=== PATIENT | female | born 1980 | race African-American/Black ===

== ENCOUNTER 2016-10-22 19:37 | Emergency (ER) | payer MEDICAID, OTHER ==
[~2016-10-22 19:37] MED LIST: ERYT1O RIGHT EYE
[2016-10-22 19:48] VITALS: BP 128/60; PULSE 66; RESP 15; TEMP 97.8; O2SAT 100
[2016-10-22 21:15] VITALS: RESP 18
--- NOTE | 2016-10-22 21:23 | PD ---
HPI Chief Complaint Lower abdominal pain for 2 days and no care Date Seen: Oct 22, 2016 Travel History International Travel<30 Days: No Contact w/Intl Traveler<30Days: No Known Affected Area: No History of Present Illness HPI This is a 36-year-old black female presents complaining of abdominal pain last 2 days. Denies bleeding or ruptured membranes. Baby is active she's had no care today she's been in retirement and didn't realize she was until just very recently, she is previous . Para: 1 : 2 Allergies-Medications (Allergen,Severity, Reaction): Coded Allergies: No Known Allergies (Verified , 10/22/16) Home Meds Active Scripts Erythromycin (Erythromycin Opht 0.5% Oint)0.5 % Oint1 Applic RIGHT EYE Q6 14 Days Instill 1/2 inch Prov:Darnell Pitts MD 05/01/14 Review of Systems General / Constitutional: No: Fever, Weight Gain, Chills, Other Eyes: No: Diploplia, Blurred Vision, Visual changes, Pain, Photophobia HENT: No: Headaches, Vertigo, Lightheadedness Cardiovascular: No: Irregular Rhythm, Chest Pain or Discomfort, Palpitations, Tachycardia, Syncope, Varicosities, Edema, Cyanosis Respiratory: No: Cough, Short of Breath, Other Gastrointestinal: Abdominal Pain, No: Nausea, Vomiting, Diarrhea Genitourinary: No: Decreased Urinary Output, Oliguria Musculoskeletal: No: Limited ROM, Weakness, Cramping, Edema, Pain Skin: No Rash, No Itching, No Dryness, No Lumps, No Change in Pigmentation, No Change in Nails, No Alopecia, No Lesions Neurologic: No: Weakness, Dizziness, Syncope, Focal Abnormalities, Coordination Problem, Headache, Slurred Speech, Seizures Psychiatric: No: Depression, Suicidal Ideations, Homicidal Ideation Endocrine: No: Heat Intolerance, Cold Intolerance, Polydipsia, Polyuria, Other Physical Exam Vital Signs Date Time Temp Pulse Resp B/P Pulse Ox O2 Delivery O2 Flow Rate FiO2 10/22/16 19:48 97.8 66 15 128/60 100 Room Air Narrative GENERAL: Well-nourished, thin patient. SKIN: Warm and dry. HEAD: Normocephalic and atraumatic. EYES: No scleral icterus. No injection or drainage. ENT: No nasal drainage noted. Mucous membranes pink. Airway patent. NECK: Supple, trachea midline. No JVD. CARDIOVASCULAR: Regular rate and rhythm without murmurs, gallops, or rubs. RESPIRATORY: Breath sounds equal bilaterally. No accessory muscle use. BREASTS: Bilateral exam showed no masses , no retractions, no nipple discharge. ABDOMEN/GI: Abdomen soft, non-tender, bowel sounds present, no rebound, no guarding Gravid to [30-] weeks size Fundal Height: [30-] GENITOURINARY: External Genitalia: intact and normal in appearance BUS glands: [-] Cervix: [Closed-] Dilatation: [-Closed] Effacement: [-] Thick Station: [-3] Presentation: [vtx ultrasound-] Membranes: [intact ] Uterine Contractions: [none-] FHT's: Category: [1-] Baseline: [-133] Reactive: [yes-] Variability: [-mod] Decels: [-none] EXTREMITIES: No cyanosis or edema. BACK: Nontender without obvious deformity. No CVA tenderness. NEUROLOGICAL: Awake and alert. Motor and sensory grossly within normal limits. Five out of 5 muscle strength in all muscle groups. Normal speech. Data Data Orders Ob Poc Ultrasound (10/22/16 ) Vital Signs (Adult) .ON ADMISSION (10/22/16 21:11) ^ Labor Status (10/22/16 21:11) Urinalysis - C+S If Indicated (10/22/16 21:11) Fentanyl Inj (Fentanyl Inj) (10/22/16 21:15) Labs Ultrasound done on OB ED shows a vertex female fetus 30 week 6 day size the gives an EDC of 12/25/16, normal anatomy noted on scan normal amniotic fluid volume, anterior grade 2 placenta MDM Interpretation(s) This patient is 36-year-old black female PCS with no care to date now 30 week 6 day size by ultrasound giving her due date of 12/25/16, she is her only complaint is one of lower abdominal pain. She denies bleeding or ruptured membranes baby is active heart rate tracing is reactive and no contractions, urinalysis pending at time of this dictation but will receive that result and treat if is positive UTI if negative than just we'll have the patient use oral hydration and Tylenol for relief Plan The plan this patient is to be treated with bedrest pain medication such as Tylenol oral hydration she can use a heating pad on low across the lower abdomen and or soak in a hot bath, her pain may be related to just adhesions from her scar or just generalized soft tissue strain and pain, she is planning upper to begin her care very soon and that is been arranged. Diagnosis Diagnosis: Primary Impression: Abdominal pain affecting , antepartum Additional Impressions: Previous delivery, antepartum No care in current in third trimester Disposition: 01 DISCHARGE HOME Condition: Stable Gurmeet Knowles II, MD Oct 22, 2016 21:23
[2016-10-22] MEDS ORDERED: LACTATED RINGER'S 1000 ML INJ 1,000 ML IV SCH (21:37)
[2016-10-22 21:45] VITALS: RESP 18
[2016-10-22] MEDS ORDERED: TERBUTALINE INJ 1 MG/ML AMP SQ PRN (21:45)
[2016-10-22 22:03] LABS: BACTERIA, URINE MOD /hpf; BLOOD, URINE NEG (NEG); COMMENT (UR) CULTURE INDICATED; CULTURE IF INDICATED CULTURE INDICATED; GLUCOSE,URINE NEG (NEG); KETONE, URINE NEG (NEG); MUCUS URINE FEW /lpf (OCC); NITRITE,URINE NEG (NEG); PH, URINE 6.5 (5.0-8.5); SQUAMOUS EPITHELIAL CELL URINE 18 /hpf (0-5); URINE COLOR YELLOW (YELLW/STRAW)
[2016-10-22 22:15] VITALS: RESP 18
[2016-10-22 22:45] VITALS: RESP 18
== END 2016-10-22 23:22 | disposition home or self-care (01) ==
LOC: HOBED 19:37
DX: O26.893 Other specified pregnancy related conditions, third trimester (principal); R10.9 Unspecified abdominal pain; O09.33 Supervision of pregnancy with insufficient antenatal care, third trimester
CPT/HCPCS: 76815; 81001; 87086; 96360; 99284; J3010; J7120

== ENCOUNTER 2016-12-06 21:13 | Inpatient (IN) | payer MEDICAID, OTHER ==
[2016-12-06] MEDS ORDERED: LACTATED RINGER'S 1000 ML INJ 1,000 ML IV ONE (22:09)
--- NOTE | 2016-12-06 22:09 | PD ---
HPI Chief Complaint Contractions Date Seen: December 06, 2016 Time Seen: 22:05 Travel History International Travel<30 Days: No Contact w/Intl Traveler<30Days: No Known Affected Area: No History of Present Illness HPI 36-year-old who is at 37 weeks 3 days by very limited criteria. Patient does not remember her last menstrual cycle and did not obtain care, patient had an ultrasound done at 30 weeks that gave her an EDC of 12/25/2016. Patient has been in [facility] during this and was unable to obtain care and did not know that she was . Para: 1 : 2 History Past Medical History Medical History: Denies Significant Hx Obstetric History Obstetric History Past Surgical History Narrative Surgical Previous section Family History Family History: Negative Social History Alcohol Use: No Tobacco Use: No Substance Abuse: No Allergies-Medications (Allergen,Severity, Reaction): Coded Allergies: No Known Allergies (Verified , 10/22/16) Home Meds Active Scripts Erythromycin (Erythromycin Opht 0.5% Oint)0.5 % Oint1 Applic RIGHT EYE Q6 14 Days Instill 1/2 inch Prov:Darnell Pitts MD 05/01/14 Review of Systems Except as stated in HPI: all other systems reviewed are Neg Physical Exam Narrative GENERAL: Well-nourished, well-developed patient. SKIN: Warm and dry. HEAD: Normocephalic and atraumatic. EYES: No scleral icterus. No injection or drainage. ENT: No nasal drainage noted. Mucous membranes pink. Airway patent. NECK: Supple, trachea midline. No JVD. CARDIOVASCULAR: Regular rate and rhythm without murmurs, gallops, or rubs. RESPIRATORY: Breath sounds equal bilaterally. No accessory muscle use. BREASTS: Bilateral exam showed no masses , no retractions, no nipple discharge. ABDOMEN/GI: Abdomen soft, non-tender, bowel sounds present, no rebound, no guarding Gravid to [-36] weeks size Fundal Height: [-36] GENITOURINARY: External Genitalia: intact and normal in appearance BUS glands: [-Normal] Cervix: [-Mid position] Dilatation: [-2] Effacement: [-90] Station: [--2] Presentation: [Vertex-] Membranes: [intact ] Uterine Contractions: [-Every 2 minutes] FHT's: Category: [-1] Baseline: [140-] Reactive: [-mod] Variability: [Moderate-] Decels: [Absent-] EXTREMITIES: No cyanosis or edema. BACK: Nontender without obvious deformity. No CVA tenderness. NEUROLOGICAL: Awake and alert. Motor and sensory grossly within normal limits. Five out of 5 muscle strength in all muscle groups. Normal speech. Data Data Vital Signs Reviewed: Yes MDM Plan 36-year-old who is at 37 and 38 weeks by very limited gestational age criteria No previous care Previous section patient is in labor Diagnosis Diagnosis: Primary Impression: 37 weeks gestation of Additional Impressions: Previous delivery affecting Irregular uterine contractions Nicol Cheek MD December 06, 2016 22:09
[2016-12-06] MEDS ORDERED: LACTATED RINGER'S 1000 ML INJ 1,000 ML IV SCH (22:39)
[2016-12-06 22:40] LABS: AUTOMATED NEUTROPHIL # 7.3 TH/MM3 (1.8-7.7); BASOPHIL # 0.1 TH/MM3 (0-0.2); BASOPHIL % 0.6 % (0.0-2.0); EOSINOPHIL # 0.1 TH/MM3 (0-0.4); EOSINOPHIL % 0.8 % (0.0-4.0); HEMATOCRIT 35.1 % (35.0-46.0); HEMO FLAGS DIFF FINAL; LYMPH % 30.7 % (9.0-44.0); LYMPHOCYTE # 3.7 TH/MM3 (1.0-4.8); MEAN CELL VOLUME 90.6 FL (80.0-100.0); MEAN CORPUSCULAR HEMOGLOBIN 29.8 PG (27.0-34.0); MEAN CORPUSCULAR HGB CONC 32.9 % (32.0-36.0); MONO % 6.9 % (0.0-8.0); PLATELET COUNT 240 TH/MM3 (150-450); RED BLOOD COUNT 3.88 MIL/MM3 (4.00-5.30); RED CELL DISTRIBUTION WIDTH 13.6 % (11.6-17.2)
[2016-12-06 22:46] LABS: AMPHETAMINE, URINE NEG (NEG); BARBITURATES, URINE NEG (NEG)
[2016-12-06] MEDS ORDERED: ONDANSETRON HCL 4 MG/2 ML VIAL ONE (22:46)
[2016-12-06] MEDS ORDERED: OXYTOCIN 10 UNIT/ML AMP ONE (22:46)
[2016-12-06] MEDS ORDERED: MORPHINE SULFATE PF 5 MG/10 ML VIAL ONE (22:46)
[2016-12-06] MEDS ORDERED: EPIDURAL-NALOXONE HCL 0.4 MG/ML AMP IV PRN (23:00)
[2016-12-06] MEDS ORDERED: EPIDURAL-DO NOT ADMINISTER ANTICOAGULANTS PRN (23:00)
[2016-12-06] MEDS ORDERED: EPIDURAL-DIPHENHYDRAMINE HCL 50 MG CAP PO PRN (23:00)
[2016-12-06] MEDS ORDERED: EPIDURAL-DIPHENHYDRAMINE HCL 50 MG/ML VIAL IV PUSH PRN (23:00)
[2016-12-06] MEDS ORDERED: EPIDURAL-NO SYSTEMIC NARCOTICS PRN (23:00)
[2016-12-06 23:07] LABS: COCAINE, URINE POS (NEG)
[2016-12-06] MEDS ORDERED: LIDOCAINE HCL 1% 50 ML VIAL ONE (23:14)
[2016-12-06] MEDS ORDERED: ceFAZolin 2 GM PREMIX 50 ML IV SCH (23:15)
[2016-12-06] MEDS ORDERED: CITRIC ACID-SODIUM CITRATE LIQ 30 ML UDC PO SCH (23:45)
--- NOTE | 2016-12-06 23:45 | HHI.HP ---
History & Physical H&P HPI HPI Chief Complaint Contractions Date Seen: December 06, 2016 Time Seen: 22:05 Travel History International Travel<30 Days: No Contact w/Intl Traveler<30Days: No Known Affected Area: No History of Present Illness HPI 36-year-old who is at 37 weeks 3 days by very limited criteria. Patient does not remember her last menstrual cycle and did not obtain care, patient had an ultrasound done at 30 weeks that gave her an EDC of 12/25/2016. Patient has been in [facility] during this and was unable to obtain care and did not know that she was . Para: 1 : 2 History (Limited) History Past Medical History Medical History: Denies Significant Hx Obstetric History Obstetric History Past Surgical History Narrative Surgical Previous section Family History Family History: Negative Social History Alcohol Use: No Tobacco Use: No Substance Abuse: No Allergies-Medications Allergies-Medications (Allergen,Severity, Reaction): Coded Allergies: No Known Allergies (Verified , 10/22/16) Home Meds Active Scripts Erythromycin (Erythromycin Opht 0.5% Oint)0.5 % Oint1 Applic RIGHT EYE Q6 14 Days Instill 1/2 inch Prov:Darnell Pitts MD 05/01/14 ROS Review of Systems Except as stated in HPI: all other systems reviewed are Neg Physical Exam Physical Exam Narrative GENERAL: Well-nourished, well-developed patient. SKIN: Warm and dry. HEAD: Normocephalic and atraumatic. EYES: No scleral icterus. No injection or drainage. ENT: No nasal drainage noted. Mucous membranes pink. Airway patent. NECK: Supple, trachea midline. No JVD. CARDIOVASCULAR: Regular rate and rhythm without murmurs, gallops, or rubs. RESPIRATORY: Breath sounds equal bilaterally. No accessory muscle use. BREASTS: Bilateral exam showed no masses , no retractions, no nipple discharge. ABDOMEN/GI: Abdomen soft, non-tender, bowel sounds present, no rebound, no guarding Gravid to [-36] weeks size Fundal Height: [-36] GENITOURINARY: External Genitalia: intact and normal in appearance BUS glands: [-Normal] Cervix: [-Mid position] Dilatation: [-2] Effacement: [-90] Station: [--2] Presentation: [Vertex-] Membranes: [intact ] Uterine Contractions: [-Every 2 minutes] FHT's: Category: [-1] Baseline: [140-] Reactive: [-mod] Variability: [Moderate-] Decels: [Absent-] EXTREMITIES: No cyanosis or edema. BACK: Nontender without obvious deformity. No CVA tenderness. NEUROLOGICAL: Awake and alert. Motor and sensory grossly within normal limits. Five out of 5 muscle strength in all muscle groups. Normal speech. Data Data Data Vital Signs Reviewed: Yes MDM MDM Plan 36-year-old who is at 37 and 38 weeks by very limited gestational age criteria No previous care Previous section patient is in labor Diagnosis Diagnosis: Primary Impression: 37 weeks gestation of Additional Impressions: Previous delivery affecting Irregular uterine contractions Nicol Cheek MD December 06, 2016 22:09 Nicol Cheek MD December 06, 2016 23:45
[2016-12-06 23:50] VITALS: BP 113/82; PULSE 72; RESP 18; TEMP 97.5; O2SAT 98
--- NOTE | 2016-12-06 23:51 | PD.OB.DELI ---
Procedure Note Section Procedure Pre Op Diagnosis: (1) No care in current in third trimester (2) Abdominal pain affecting , antepartum (3) Irregular uterine contractions (4) 37 weeks gestation of (5) Previous delivery, antepartum (6) Drug abuse during Post Op Diagnosis: Performed by Nicol Cheek Procedure: Repeat Low Transverse Sec Indication for delivery: Desired elective repeat Informed consent obtained: For anesthesia, For procedure Confirmed correct: Patient, Procedure, Time-out taken Anesthesia: Spinal Medication prior to procedure: Antibiotics, IV Monitoring during procedure: Blood pressure monitoring, postal service mail processor, Pulse oximetry Urinary catheter: Inserted using sterile technique, To dependent drainage Sterile preparation: Duraprep Position: Supine with wedge to left side Operative Features Skin Incision: Transverse Uterine Incision: Low transverse w/knife / blunt ext Membranes Ruptured: Artificially Presentation: Occiput anterior Time of : 23:19 Delivery of infant: Uneventful Infant: Female One Minute : 8 Five Minute : 9 Weight: 2550gm Status of : Viable Placenta delivered: Intact Medications: Oxytocin Estimated blood loss: <500cc Procedure tolerated: Well Maternal Condition: Stable Condition: Stable Nicol Cheek MD December 06, 2016 23:51
[2016-12-07] VITALS: BP 123/62; PULSE 72; RESP 18; O2SAT 100
[2016-12-07] MEDS ORDERED: OXYTOCIN 30 UNITS-500ML PREMIX 500 ML IV ONE
[2016-12-07] MEDS ORDERED: ONDANSETRON HCL 4 MG/2 ML VIAL IV PUSH PRN
[2016-12-07] MEDS ORDERED: SODIUM CHLORIDE 0.9% FLUSH 10 ML FLUSH IV FLUSH PRN
[2016-12-07] MEDS ORDERED: SIMETHICONE 80 MG CHEWABLE TAB PO PRN
[2016-12-07 00:10] VITALS: BP 112/57; PULSE 65; RESP 18; O2SAT 100
[2016-12-07 00:21] VITALS: BP 125/71; PULSE 63; RESP 16; O2SAT 100
[2016-12-07 00:37] VITALS: BP 128/72; PULSE 59; RESP 16; O2SAT 100
[2016-12-07 03:59] LABS: RUBELLA IGG ANTIBODY 37.2 IU/mL (10.0-500.0); RUBELLA STATUS IMMUNE (IMMUNE)
[2016-12-07] MEDS ORDERED: LACTATED RINGER'S 1000 ML INJ 1,000 ML IV SCH (04:54)
[2016-12-07 06:02] LABS: AUTOMATED NEUTROPHIL # 12.5 TH/MM3 (1.8-7.7); BASOPHIL % 0.3 % (0.0-2.0); HEMATOCRIT 35.4 % (35.0-46.0); HEMO FLAGS DIFF FINAL; LYMPH % 9.6 % (9.0-44.0); LYMPHOCYTE # 1.4 TH/MM3 (1.0-4.8); MEAN CELL VOLUME 91.7 FL (80.0-100.0); MEAN CORPUSCULAR HEMOGLOBIN 29.9 PG (27.0-34.0); MEAN CORPUSCULAR HGB CONC 32.6 % (32.0-36.0); MONO % 3.8 % (0.0-8.0); NEUT % 86.3 % (16.0-70.0); PLATELET COUNT 212 TH/MM3 (150-450); RED BLOOD COUNT 3.86 MIL/MM3 (4.00-5.30); RED CELL DISTRIBUTION WIDTH 13.4 % (11.6-17.2); WHITE BLOOD COUNT 14.5 TH/MM3 (4.0-11.0)
[2016-12-07] MEDS: IBUPROFEN 600 MG TAB PO PRN ×3 (07:56→19:35)
[2016-12-07] MEDS: oxyCODONE/ACETAMINOPHEN 5 MG/325 MG TAB PO PRN ×3 (07:56→19:35)
--- NOTE | 2016-12-07 08:04 | HHI.OB ---
Subjective Post Operative Day: 1 Remarks Patient is a 36-year-old delivered at 37 weeks and 2 days. Patient is postop day 1 after . Patient's pain is mild and well-controlled by medication. Patient reports not yet eating and drinking; she denies any nausea or vomiting. Patient reports not much bleeding. Patient has not yet passed gas or bowel movements. Patient is not yet walking without lower extremity pain or shortness of breath. Patient reports desire for contraception with Depo-Provera shot. (Humphrey Carlton MD R1) Objective Vitals/I&O Vital Signs Date Time Temp Pulse Resp B/P Pulse Ox O2 Delivery O2 Flow Rate FiO2 12/07/16 00:37 59 16 128/72 100 12/07/16 00:21 125/71 12/07/16 00:21 63 16 100 12/07/16 00:10 65 18 112/57 100 12/07/16 00:00 72 18 123/62 100 12/07/16 00:00 72 18 123/62 100 12/06/16 23:50 97.5 72 18 113/82 98 (Humphrey Carlton MD R1) Result Diagram: 12/07/16 0442 Objective Remarks GENERAL: Well-nourished, well-developed patient. CARDIOVASCULAR: Regular rate and rhythm without murmurs, gallops, or rubs. RESPIRATORY: Breath sounds equal bilaterally. No accessory muscle use. ABDOMEN/GI: Abdomen soft, non-tender, bowel sounds present. Incision: Clean, dry and intact. Fundus: Firm, non-tender at umbilicus. GENITOURINARY: Light to moderate bleeding. EXTREMITIES: No cyanosis or edema, non-tender, without signs of DVT. Medications and IVs Current Medications Medications (Trade) Dose Ordered Sig/Vida Route Start Time Stop Time Status Last Admin Lactated Ringer's 1,000 ml @ 150 mls/hr Q6H40M IV 12/06/16 22:39 12/06/16 22:39 (Lr 1000 ml Inj) 1,000 ml @ 100 mls/hr Q10H IV 12/07/16 04:54 12/08/16 00:53 (NS Flush) 2 ml BID IV FLUSH 12/07/16 09:00 (NS Flush) 2 ml UNSCH PRN IV FLUSH 12/07/16 00:00 12/07/16 02:23 (Mylicon Chew) 80 mg QID PRN PO 12/07/16 00:00 (Motrin) 600 mg Q6H PRN PO 12/07/16 00:00 12/07/16 07:56 (Percocet 5-325 Mg) 1 tab Q4H PRN PO 12/07/16 00:00 12/07/16 07:56 (Percocet 5-325 Mg) 2 tab Q4H PRN PO 12/07/16 00:00 (Connie-Colace) 2 tab Q12H PRN PO 12/07/16 00:00 (M-M-R Ii Inj) 0.5 ml ONCE ONCE SQ 12/07/16 16:00 12/07/16 16:01 (Boostrix Inj) 0.5 ml ONCE ONCE IM 12/07/16 16:00 12/07/16 16:01 (Zofran Inj) 4 mg Q6H PRN IV PUSH 12/07/16 00:00 Miscellaneous Information NO SYSTEMIC NARCOTICS TO BE GIVEN FO... UNSCH PRN .XX 12/06/16 23:00 12/07/16 22:59 (Narcan Inj) 0.4 mg UNSCH PRN IV 12/06/16 23:00 12/07/16 22:59 (Benadryl Inj) 25 mg Q6H PRN IV PUSH 12/06/16 23:00 12/07/16 22:59 12/07/16 02:23 (Benadryl) 50 mg Q6H PRN PO 12/06/16 23:00 12/07/16 22:59 Miscellaneous Information ALL NURSING DEPARTMENTS UNSCH PRN .XX 12/06/16 23:00 12/07/16 22:59 (Humphrey Carlton MD R1) Assessment/Plan Problem List: (1) S/P Assessment and Plan Patient is a 36-year-old delivered at 37 weeks and 2 days. Patient is postop day 1 after . 1. s/p --Patient was counseled to follow up with her doctor in one week to get incision check and do 6 weeks of pelvic rest. Patient was counseled to follow up in 6 weeks. --AF VSS --Continue routine /postop care --Motrin and Percocet when necessary for pain --Encourage OOB --Contraception: Patient requested Depo-Provera shot for contraception. --Anticipate discharge in 2 days Discharge Planning Anticipate discharge in 2 days. (Humphrey Carlton MD R1) Collaborating MD Comments Agree with assessment and management (Nicol Cheek MD) Humphrey Carlton MD R1 December 07, 2016 08:04 Nicol Cheek MD December 07, 2016 08:25
[2016-12-07] MEDS ORDERED: SODIUM CHLORIDE 0.9% FLUSH 10 ML FLUSH IV FLUSH SCH (09:00)
[2016-12-07] MEDS ORDERED: OXYTOCIN 30 UNITS-500ML PREMIX 500 ML IV PRN (10:00)
[2016-12-07 10:02] LABS: RAPID PLASMA REAGIN SCREEN NON-REACTIVE (NON-REACTVE)
--- NOTE | 2016-12-07 12:11 | MP ---
cc: DOMITILA JOYCE M.D. DATE OF SURGERY 12/06/2016 SURGEON Domitila Joyce MD PREOPERATIVE DIAGNOSES 1. No care. 2. Abdominal pain. 3. Irregular uterine contractions. 4. 37 weeks gestation. 5. Previous section, desires repeat. 6. Drug abuse during with incarceration. POSTOPERATIVE DIAGNOSES 1. No care. 2. Abdominal pain. 3. Irregular uterine contractions. 4. 37 weeks gestation. 5. Previous section, desires repeat. 6. Drug abuse during with incarceration. PROCEDURE Repeat low transverse section without extension. ESTIMATED BLOOD LOSS 500 cc. ANESTHETIC Spinal. DRAINS [place]barca to gravity. MEDICATIONS Ancef 2 grams given preoperatively. COUNTS Correct x 3. COMPLICATIONS No complications. FINDINGS 1. Normal uterus, tubes and ovaries. 2. Moderate meconium-stained amniotic fluid. 3. Infant female vertex presentation. Apgars were 8 and 9, weight was 2550 grams with a 45-second delay for cord clamping. DESCRIPTION OF PROCEDURE The patient was taken back to the operating room, prepped and draped in the usual sterile fashion, placed in dorsal supine position with a wedge to her left side. After adequate anesthetic was obtained, a transverse incision was made through her previous scar and taken down to the fascia. The fascia was nicked in the midline, extended bilaterally and taken off the rectus muscles. The muscles were divided in the midline. Anterior peritoneum was taken down and a transverse hysterotomy incision was made, bluntly extended bilaterally. The infant's amniotic sac was ruptured with moderate meconium and the 's head was delivered to the operative field. The rest of the body was delivered and 45-second cord clamping delay with resuscitation at the bedside. The placenta was delivered intact spontaneously. The endometrial cavity was curetted with a moist laparotomy sponge. The hysterotomy incision was repaired using running locking #1 chromic suture with good hemostasis at closure. There was a small bleeder that was made hemostatic with [id number] suture. Gutters were rendered free of all blood and clot material. The fascia was closed with a #1 PDS, subcutaneous tissue was noted to be hemostatic and the skin was closed with anali. The patient tolerated the procedure well. She was taken back to the recovery room in good condition. MD NATALY Powell/SSB /11:55 PM /12:06 PM
[2016-12-07] MEDS: DOCUSATE SODIUM 50 MG/SENNA 8.6 MG TAB PO PRN (14:00)
[2016-12-07] MEDS ORDERED: MEASLES, MUMPS, RUBELLA VACCINE 0.5 ML VIAL SQ ONE (16:00)
[2016-12-07] MEDS ORDERED: DIPHTH/TETANUS/ACEL PERTUSSIS (BOOSTER) 0.5 ML VIAL/PFS IM ONE (16:00)
[2016-12-07 19:25] VITALS: BP 131/80; PULSE 60; RESP 18; TEMP 99
[2016-12-07] MEDS ORDERED: METOCLOPRAMIDE HCL 10 MG/2 ML VIAL IV ONE (23:25)
[2016-12-07] MEDS ORDERED: DEXAMETHASONE SOD PHOS 4 MG/ML VIAL IV PUSH ONE (23:25)
[2016-12-08] MEDS: IBUPROFEN 600 MG TAB PO PRN ×4 (02:20→20:38)
[2016-12-08] MEDS: oxyCODONE/ACETAMINOPHEN 5 MG/325 MG TAB PO PRN ×4 (02:21→20:38)
[2016-12-08] MEDS: DOCUSATE SODIUM 50 MG/SENNA 8.6 MG TAB PO PRN (08:04)
--- NOTE | 2016-12-08 08:31 | HHI.OB ---
Subjective Post Operative Day: 2 Remarks Patient is a 36-year-old delivered at 37 weeks and 2 days. Patient is postop day 2 after . Patient complains of some incisional and crampy abdominal pain, but reports that her pain is well-controlled. Patient reports eating and drinking without any nausea or vomiting. Patient reports light bleeding. Patient has passed gas but no bowel movements. Patient is walking without lower extremity pain or shortness of breath. Patient reports desire for contraception with Depo-Provera shot. Objective Vitals/I&O Vital Signs Date Time Temp Pulse Resp B/P Pulse Ox O2 Delivery O2 Flow Rate FiO2 12/07/16 19:25 99.0 60 18 131/80 Result Diagram: 12/07/16 0442 Objective Remarks GENERAL: Well-nourished, well-developed patient. CARDIOVASCULAR: Regular rate and rhythm without murmurs, gallops, or rubs. RESPIRATORY: Breath sounds equal bilaterally. No accessory muscle use. ABDOMEN/GI: Abdomen soft, non-tender, bowel sounds present. Incision: Clean, dry and intact. Fundus: Firm, non-tender at umbilicus. GENITOURINARY: Light bleeding. EXTREMITIES: No cyanosis or edema, non-tender, without signs of DVT. Medications and IVs Current Medications Medications (Trade) Dose Ordered Sig/Vida Route Start Time Stop Time Status Last Admin (Lr 1000 ml Inj) 1,000 ml @ 150 mls/hr Q6H40M IV 12/06/16 22:39 12/06/16 22:39 (NS Flush) 2 ml BID IV FLUSH 12/07/16 09:00 (NS Flush) 2 ml UNSCH PRN IV FLUSH 12/07/16 00:00 12/07/16 02:23 (Mylicon Chew) 80 mg QID PRN PO 12/07/16 00:00 (Motrin) 600 mg Q6H PRN PO 12/07/16 00:00 12/08/16 08:04 (Percocet 5-325 Mg) 1 tab Q4H PRN PO 12/07/16 00:00 12/07/16 14:01 (Percocet 5-325 Mg) 2 tab Q4H PRN PO 12/07/16 00:00 12/08/16 08:05 (Connie-Colace) 2 tab Q12H PRN PO 12/07/16 00:00 12/08/16 08:04 (Zofran Inj) 4 mg Q6H PRN IV PUSH 12/07/16 00:00 Assessment/Plan Problem List: (1) S/P Assessment and Plan Patient is a 36-year-old delivered at 37 weeks and 2 days. Patient is postop day 2 after . 1. s/p --Patient was counseled to follow up with her doctor in one week to get incision check and do 6 weeks of pelvic rest. Patient was counseled to follow up in 6 weeks. --AF VSS --Continue routine /postop care --Motrin and Percocet when necessary for pain --Encourage OOB --Contraception: Patient requested Depo-Provera shot for contraception. Ordered prior to discharge --Anticipate discharge tomorrow --Staple removal tomorrow prior to discharge wdw Dr. Olivas Discharge Planning Anticipate discharge in 2 days. Humphrey Carlton MD R1 December 08, 2016 08:31
[2016-12-08 19:30] VITALS: BP 130/79; PULSE 69; RESP 18; TEMP 98.3
[2016-12-09] MEDS: IBUPROFEN 600 MG TAB PO PRN ×2 (02:29→09:06)
[2016-12-09] MEDS: oxyCODONE/ACETAMINOPHEN 5 MG/325 MG TAB PO PRN ×3 (02:29→13:06)
[2016-12-09 07:55] VITALS: BP 143/84; PULSE 64; RESP 18; TEMP 98.9
[2016-12-09] MEDS ORDERED: medroxyPROGESTERone ACETATE SUSP 150 MG/ML SYRINGE IM ONE (08:30)
[2016-12-09] MEDS ORDERED: PRENTAB14 PO (12:05)
[2016-12-09] MEDS ORDERED: OXYC1TAB63 PO (12:05)
[2016-12-09] MEDS ORDERED: Ibuprofen PO (12:05)
--- NOTE | 2016-12-09 12:06 | HHI.DCPOC ---
Discharge Care Plan Diagnosis: (1) S/P Report Symptoms to Your Doctor -Temperature above 100.5 degrees -Redness, of incision or excessive or foul smelling drainage -Unusual pain or calf pain -Increased vaginal bleeding -Painful or difficulty urinating -Feelings of extreme sadness or anxiety after 2 weeks Goals to Promote Your Health * To prevent worsening of your condition and complications, please follow-up with her doctor within 1 week for an incision check and again within 6 weeks. * To maintain your health at the optimal level, please stay well hydrated, eat a well-balanced diet, and exercise regularly. Directions to Meet Your Goals Take your medications as prescribed Follow your dietary instruction Follow activity as directed Ensure plenty of rest for recovery Drink fluids for hydration Keep your appointments as scheduled Take your immunizations and boosters as scheduled If your symptoms worsen call your PCP, if no PCP go to Urgent Care Center or Emergency Room Smoking is Dangerous to Your Health. Avoid second hand smoke Call the 24-hour crisis hotline for domestic abuse at Humphrey Carlton MD R1 December 09, 2016 12:06
--- NOTE | 2016-12-09 12:08 | HHI.OB ---
Subjective Post Operative Day: 3 Remarks Patient is a 36-year-old delivered at 37 weeks and 2 days. Patient is postop day 3 after . Patient complains of some incisional and crampy abdominal pain, but reports that her pain is well-controlled. Patient reports eating and drinking without any nausea or vomiting. Patient reports light bleeding. Patient has passed gas but no bowel movements. Patient is walking without lower extremity pain or shortness of breath. Patient reports desire for contraception with Depo-Provera shot. (Humphrey Carlton MD R1) Objective Vitals/I&O Vital Signs Date Time Temp Pulse Resp B/P Pulse Ox O2 Delivery O2 Flow Rate FiO2 12/09/16 07:55 64 143/84 12/09/16 07:55 98.9 18 12/08/16 19:30 98.3 69 18 130/79 (Humphrey Carlton MD R1) Objective Remarks GENERAL: Well-nourished, well-developed patient. CARDIOVASCULAR: Regular rate and rhythm with ii-iii/vi systolic murmur heard best at left upper sternal border RESPIRATORY: Breath sounds equal bilaterally. No accessory muscle use. ABDOMEN/GI: Abdomen soft, non-tender, bowel sounds present. Incision: Clean, dry and intact. Fundus: Firm, non-tender at umbilicus. GENITOURINARY: Light bleeding. EXTREMITIES: No cyanosis or edema, non-tender, without signs of DVT. Medications and IVs Current Medications Medications (Trade) Dose Ordered Sig/Vida Route Start Time Stop Time Status Last Admin (Lr 1000 ml Inj) 1,000 ml @ 150 mls/hr Q6H40M IV 12/06/16 22:39 12/06/16 22:39 (NS Flush) 2 ml BID IV FLUSH 12/07/16 09:00 (NS Flush) 2 ml UNSCH PRN IV FLUSH 12/07/16 00:00 12/07/16 02:23 (Mylicon Chew) 80 mg QID PRN PO 12/07/16 00:00 (Motrin) 600 mg Q6H PRN PO 12/07/16 00:00 12/09/16 09:06 (Percocet 5-325 Mg) 1 tab Q4H PRN PO 12/07/16 00:00 12/07/16 14:01 (Percocet 5-325 Mg) 2 tab Q4H PRN PO 12/07/16 00:00 12/09/16 09:06 (Connie-Colace) 2 tab Q12H PRN PO 12/07/16 00:00 12/08/16 08:04 (Zofran Inj) 4 mg Q6H PRN IV PUSH 12/07/16 00:00 (Humphrey Carlton MD R1) Assessment/Plan Problem List: (1) S/P Assessment and Plan Patient is a 36-year-old delivered at 37 weeks and 2 days. Patient is postop day 3 after . 1. s/p --Patient was counseled to follow up with her doctor in one week to get incision check and do 6 weeks of pelvic rest. Patient was counseled to follow up in 6 weeks. --AF VSS --Continue routine /postop care --Motrin and Percocet when necessary for pain. Discharge patient on Motrin and Percocet. --Encourage OOB --Contraception: Patient requested Depo-Provera shot for contraception. Ordered prior to discharge --Anticipate discharge today --Staple removal today prior to discharge dw Dr. Cheek Discharge Planning Anticipate discharge today. (Humphrey Carlton MD R1) Collaborating MD Comments Agree with care and management (Nicol Cheek MD) Humphrey Carlton MD R1 December 09, 2016 12:08 Nicol Cheek MD December 13, 2016 09:21
[2016-12-16 19:02] LABS: BATH SALTS (MDPV) UR NEG (NEG); ECSTASY (MDMA) UR NEG (NEG); GABAPENTIN UR NEG (NEG); HEROIN (6-ACETYLMORPHINE) UR NEG (NEG); HYDROMORPHONE U NEG (NEG); K2 SPICE UR NEG (NEG); OBMETHADONE UR NEG (NEG); OXYCODONE (PERCODAN) NEG (NEG); PHENCYCLIDINE URINE NEG (NEG)
== END 2016-12-09 16:47 | disposition home or self-care (01) | DRG 765 ==
LOC: HOBED 21:13 → H2EB 22:15 → H1EA 12-07 01:00
PROVIDERS: ADMIT Obstetrics & Gynecology Obstetrics; ATTEND Obstetrics & Gynecology Obstetrics
PROC: 10D00Z1 Extraction of Products of Conception, Low, Open Approach (ICD-10-PCS; principal; 2016-12-06)
PROC: 10907ZC Drainage of Amniotic Fluid, Therapeutic from Products of Conception, Via Natural or Artificial Opening (ICD-10-PCS; 2016-12-06)
DX: O34.211 Maternal care for low transverse scar from previous cesarean delivery (principal); O99.324 Drug use complicating childbirth; Z37.0 Single live birth; F19.10 Other psychoactive substance abuse, uncomplicated; O77.0 Labor and delivery complicated by meconium in amniotic fluid; Z3A.37 37 weeks gestation of pregnancy; O09.529 Supervision of elderly multigravida, unspecified trimester; O09.30 Supervision of pregnancy with insufficient antenatal care, unspecified trimester
CPT/HCPCS: 80074; 80307; 85025; 86592; 86703; 86762; 86850; 86900; 86901; 90715; 99285; G0481; J0690; J1050; J1100; J1200; J2274; J2405; J2590; J2765; J3010; J7120